=== PATIENT | male | born 1965 | race African-American/Black ===

== ENCOUNTER 2019-05-23 06:30 | Emergency (ER) | payer SELFPAY ==
[~2019-05-23] VITALS: Ht 190.5 cm; Wt 154.0 kg
[2019-05-23] MEDS ORDERED: FLUTICASONE PROPIONATE 50MCG/SPRAY BOTTLE BOTHNSTRLS STA (07:10)
[2019-05-23] MEDS ORDERED: BENZONATATE 100MG CAPSULE PO ONE (07:15)
[2019-05-23 08:17] LABS: BASOPHILS % 0.9 % (0.0-2.0); EOSINOPHILS % 2.5 % (0.0-5.0); HEMOGLOBIN. 14.9 g/dL (14.0-18.0); LYMPHOCYTES % 24.3 % (20.0-50.0); MEAN CORPUSCULAR HEMOGLOBIN 27.3 pg (28.0-32.0); MEAN CORPUSCULAR VOLUME 82.4 fL (80.0-94.0); MEAN PLATELET VOLUME 7.9 fl (7.4-10.4); NEUTROPHILS % 63.3 % (40.0-76.0); PLATELET 242 x1000/uL (130-400); RED BLOOD CELL COUNT 5.46 mill/uL (4.7-6.1); RED CELL DISTRIBUTION WIDTH 16.1 % (11.6-14.6)
[2019-05-23 08:23] LABS: CHLORIDE 104 mEq/L (98-107)
[2019-05-23 09:35] VITALS: BP 124/79
== END 2019-05-23 09:57 | disposition home or self-care (01) ==
LOC: ER 06:30
DX: B34.9 Viral infection, unspecified (principal); M75.32 Calcific tendinitis of left shoulder; Z98.890 Other specified postprocedural states; Z90.49 Acquired absence of other specified parts of digestive tract
CPT/HCPCS: 36415; 71045; 73030; 80053; 85025; 93005; 99284; Z7610